=== PATIENT | male | born 1950 | race Caucasian/White ===

== ENCOUNTER 2022-08-28 09:59 | Emergency (ER) | payer OTHER ==
[~2022-08-28] VITALS: Ht 177.8 cm; Wt 65.5 kg
[2022-08-28] MEDS ORDERED: TAM75CAP PO (12:15)
[2022-08-28 12:40] VITALS: BP 120/57
== END 2022-08-28 12:50 | disposition home or self-care (01) | DRG 195 ==
LOC: ED 09:59
DX: J10.1 Influenza due to other identified influenza virus with other respiratory manifestations (principal); Z20.822 Contact with and (suspected) exposure to COVID-19